=== PATIENT | male | born 1970 | race African-American/Black ===

== ENCOUNTER 2017-12-31 21:42 | Emergency (ER) | payer OTHER ==
[~2017-12-31 21:42] MED LIST: DOXYCYCLINE HY100 M2 PO; PEPCID20 M1 PO; PREDNISONE 10MG10 M1 PO; PROBIOTIC1 EACH PO; SENNA-S 50 MG-81 TAB PO; SMZ-TMP 800 MG-1 TAB PO; ZOFRAN ODT4 M1 SL; [UNRECOGNIZED DRUG - REMARK]
[2017-12-31 21:49] VITALS: BP 115/70
== END 2018-01-01 00:08 | disposition admitted as inpatient to this hospital (09) ==
LOC: ERH 21:42
DX: R22.9 Localized swelling, mass and lump, unspecified (principal)